=== PATIENT | male | born 1970 | race Caucasian/White ===

== ENCOUNTER → 2017-01-14 | Outpatient (CLI) | payer OTHER ==
[2017-01-14 13:02] LABS: ABSOLUTE BASOPHILS # (AUTO) 0.1 10^3/uL (0.0-0.2); ABSOLUTE EOSINOPHILS # (AUTO) 0.3 10^3/uL (0.0-0.6); ABSOLUTE MONOCYTES (AUTO) 0.6 10^3/uL (0.1-1.4); ABSOLUTE NEUT (AUTO) 4.8 10^3/uL (1.7-8.2); BASOPHILS % (AUTO) 0.7 % (0-2); HEMATOCRIT 39.6 % (37.9-51.0); HEMOGLOBIN 13.8 g/dL (13.5-17.0); HGB HCT DIFFERENCE 1.8; LYMPHOCYTES % (AUTO) 34.2 % (13-45); MEAN CORPUSCULAR HEMOGLOBIN 33.2 pg (27.0-33.4); MEAN CORPUSCULAR VOLUME 95 fl (80-97); MONOCYTES % (AUTO) 6.5 % (3-13); RED BLOOD COUNT 4.17 10^6/uL (4.35-5.55); RED CELL DISTRIBUTION WIDTH 12.9 % (11.5-14.0); SEGMENTED NEUTROPHILS % (AUTO) 55.6 % (42-78); WHITE BLOOD COUNT 8.7 10^3/uL (4.0-10.5)
[2017-01-14 13:30] LABS: ALANINE AMINOTRANSFERASE 39 U/L (21-72); ALBUMIN 4.3 g/dL (3.5-5.0); ALKALINE PHOSPHATASE 74 U/L (38-126); ANION GAP 13 (5-19); ASPARTATE AMINO TRANSFERASE 23 U/L (17-59); BILIRUBIN,DIRECT 0.3 mg/dL (0.0-0.4); BILIRUBIN,TOTAL 0.4 mg/dL (0.2-1.3); BLOOD UREA NITROGEN 13 mg/dL (7-20); CALCIUM 9.5 mg/dL (8.4-10.2); CARBON DIOXIDE 22 mmol/L (22-30); CHLORIDE 101 mmol/L (98-107); GLUCOSE 100 mg/dL (75-110); POTASSIUM 4.6 mmol/L (3.6-5.0); SODIUM 135.6 mmol/L (137-145)
[2017-01-14 13:37] LABS: C-REACTIVE PROTEIN < 5.0 mg/L (<10.0)
[2017-01-14 13:51] LABS: ERYTHROCYTE SEDIMENTATION RATE 10 mm/hr (0-15)
== END ==
LOC: WC 12:19
PROVIDERS: ATTEND Preventive Medicine Undersea and Hyperbaric Medicine
DX: L97.522 Non-pressure chronic ulcer of other part of left foot with fat layer exposed (principal)
CPT/HCPCS: 36415; 80053; 85025; 85652; 86140

== ENCOUNTER → 2017-02-05 | Outpatient (CLI) | payer OTHER | LOC: RAD 13:52 | PROVIDERS: ATTEND Preventive Medicine Undersea and Hyperbaric Medicine | DX: L97.522 Non-pressure chronic ulcer of other part of left foot with fat layer exposed (principal); M86.8X7 Other osteomyelitis, ankle and foot | CPT/HCPCS: 73720; A9576 ==

== ENCOUNTER 2017-03-04 11:15 | Day surgery (SDC) | payer OTHER ==
[~2017-03-04 11:15] MED LIST: CEFAZOLIN 1 GM/D5W RTU 1 GM/50 ML RTUPB IV PRN; TOBRAMYCIN SULFATE INJ 1.2 GM PWDR VIAL MC PRN; VANCOMYCIN HCL INJ 1000 MG VIAL IL PRN; VANCOMYCIN HCL INJ 1000 MG VIAL IV PRN
[2017-03-04] MEDS ORDERED: BACITRACIN INJ 50,000 UNIT VIAL ONE (11:45)
[2017-03-04] MEDS ORDERED: BUPIVACAINE HCL 0.5 % INJ/PF 30 ML SDV ONE (11:45)
[2017-03-04] MEDS ORDERED: LIDOCAINE 2% INJ (20 MG/ML) 20 ML MDV ONE (11:45)
[2017-03-04] MEDS ORDERED: POLYMYXIN B SULFATE INJ 500000 UNIT VIAL ONE (11:45)
[2017-03-04] MEDS ORDERED: NORMAL SALINE INJ/PF 0.9% 10 ML SDV ONE (11:45)
[2017-03-04] MEDS ORDERED: WATER FOR INJECTION,STERILE 10 ML SDV ONE (11:46)
[2017-03-04] MEDS ORDERED: MIDAZOLAM 2 MG/2 ML INJ ONE (11:55)
[2017-03-04] MEDS ORDERED: FENTANYL CITRATE INJ/PF 100 MCG/2 ML AMPUL ONE (11:55)
[2017-03-04] MEDS ORDERED: PROPOFOL INJ 200 MG/20 ML VIAL IV ONE (11:55)
--- NOTE | 2017-03-04 15:34 | RADIOLOGY REPORT (SQ) ---
EXAM DESCRIPTION: FOOT LEFT 2 VIEWS; NO CHG FLUORO COMPLETED DATE/TIME: 03/04/2017 3:14 pm REASON FOR STUDY: LT FOOT 2ND TOE BONE REMOVAL M86.8X7 OTHER OSTEOMYELITIS, ANKLE AND FOOT COMPARISON: None. FLUOROSCOPY TIME: 2 second 2 images saved to PACS. TECHNIQUE: Intra-operative images acquired during surgical procedure to evaluate progress. NUMBER OF IMAGES: 2 LIMITATIONS: None. FINDINGS: Spot fluoroscopic images from amputation of a portion of the phalanges of the 2nd digit th e left foot. Images demonstrate a surgical probe on the 2nd digit following resection of a portion o f the proximal and middle phalanges. Subsequent image demonstrates antibiotic bead placement within the resection cavity. Please see operative report for full details regarding procedure. IMPRESSION: IMAGE(S) OBTAINED DURING PROCEDURE. COMMENT: Quality ID [id number]: Final reports for procedures using fluoroscopy that document radiation exp osure indices, or exposure time and number of fluorographic images (if radiation exposure indices are not available) Please consult full operative report of the attending physician for description of the procedure. TECHNICAL DOCUMENTATION: JOB ID: [id number] [employer]- All Rights Reserved
--- NOTE | 2017-03-05 11:03 | SURGICARE OPERATIVE REPORT E ---
[facility] Operative Report NAME: YOBANY HUANG AGE: 46Y DATE OF SURGERY: ROOM: PREOPERATIVE DIAGNOSIS: Chronic osteomyelitis of the second toe of the left foot. POSTOPERATIVE DIAGNOSIS: Chronic osteomyelitis of the second toe of the left foot. OPERATION: Debridement of bone of the second toe with insertion of antibiotic beads, Osteoset with tobramycin second toe left foot. SURGEON: MUKESH VELA DPM MEAL PACKER: KERRIE GATES DPM INDICATION: On 03/04/2017 the patient was admitted to [facility] with complaint of painful second toe with an open wound, left foot. PROCEDURE: Patient was taken to the operating room where, following induction of intravenous sedation and regional local anesthesia, the patient's left foot and leg were prepped and draped in the usual sterile manner. A tourniquet was placed proximally on the malleoli. Esmarch was placed, and tourniquet was inflated to a level of 250 mmHg for the purpose of hemostasis. Esmarch was removed. Sterile drape was completed, and the following procedure performed. Attention was directed to the patient's left foot and the dorsal aspect of the second toe where there was noted to be an approximately 2-cm open draining ulceration centered over the head of the proximal phalanx and partially over the proximal interphalangeal joint. Incision was started at approximately the second metatarsophalangeal joint and was carried in a linear fashion proximal to and extending distal to the proximal portion of the wound. Incision was then extended on the distal portion of the wound over the distal interphalangeal joint. At that time the wound was debrided. All necrotic edges of the wound were sharply excised. The proximal interphalangeal joint was identified, and the remaining collateral ligaments were sharply excised. The extensor longus extensor tendon had previously ruptured and was located in a lateral proximal position. The phalanx was then debrided utilizing a combination of hand and power equipment until a normal-appearing medullary canal was identified. This was verified under fluoroscopic studies. Approximately 75% of the phalanx needed to be removed at this point. Attention was directed to the base of the middle phalanx, and there was noted to be cartilaginous was intact, but the base of the phalanx was extremely hypertrophied. Utilizing a combination of hand and power equipment the base of the middle phalanx was reduced in bulk. Dissection was carried throughout, removing all necrotic tissue and nonviable tissue. The flexor tendons, longus and brevis, were identified and noted to be in excellent condition and appeared to be free of infection. The remaining portion of the longus extensor tendon was identified and was freed from its soft tissue and angel attachments distally. The extensor roy was released, the remainder distal portion of the tendon was debrided to fresh margins, and appeared to be in a healthy state. It was felt at this time that insertion of antibiotic beads and soft tissue rebalancing of the remaining portion of the phalanx may allow the patient to save the toe and avoid amputation. The Antibiotic bead kit, Osteoset which was premixed prior to the procedure with tobramycin and allowed to harden during the procedure. At this time the wound was flushed with copious amounts of sterile antibiotic solution and inspected for any soft or osseous debris with any debris being removed and any further dissection or debridement carried out at that time. The area was then flushed again with copious amounts of sterile antibiotic solution. The longus extensor tendon and longus flexor tendon were then coapted with simple vicryl suture covering the distal portion of the proximal phalanx stump. At that time antibiotic beads were inserted on adjacent portions of the phalanx, into the end of the proximal phalanx and plantar and dorsal in the wound. The skin incision closure was begun with interrupted horizontal mattress suture. The incision was partially closed, and more antibiotic beads were inserted. This continued until the wound was fully closed primarily. Sterile dressing consisting of Brian silk, 4 x 4s, Roland, Kerlix, and Coflex applied to the patient's left foot. Tourniquet was rapidly deflated. Capillary filling time was instantaneous to the first, third, fourth, and fifth toes, somewhat delayed on the second toe, but capillary refill did return prior to the patient leaving the OR and being sent to the recovery room. Patient tolerated the proceedure very well. DICTATING PHYSICIAN: MUKESH VELA DPM [id number] PHY#: [id number] ID: [id number] JOB#: [id number] ACCT: [id number] cc:MUKESH VELA DPM > [facility]
== END 2017-03-04 15:04 | disposition home or self-care (01) ==
LOC: SC 11:15
PROVIDERS: ATTEND Preventive Medicine Undersea and Hyperbaric Medicine
PROC: 3E01329 Introduction of Other Anti-infective into Subcutaneous Tissue, Percutaneous Approach (ICD-10-PCS; 2017-03-04)
PROC: 0QBR0ZZ Excision of Left Toe Phalanx, Open Approach (ICD-10-PCS; principal; 2017-03-04 12:00)
DX: M86.672 Other chronic osteomyelitis, left ankle and foot (principal); F17.210 Nicotine dependence, cigarettes, uncomplicated
CPT/HCPCS: 87070; 87205; 87101; 87075; 87077; 87186; 88305 ×2; 88311; 73620; 11044; C1713; J2250; J3490 ×5; J0690; J3010; J2704; J3260; 01480

== ENCOUNTER 2017-04-22 09:35 | Day surgery (SDC) | payer OTHER ==
[2017-04-22] MEDS ORDERED: CEFAZOLIN 1 GM/D5W RTU 1 GM/50 ML RTUPB IV ONE (09:49)
[2017-04-22] MEDS ORDERED: ALBUTEROL SULFATE 0.083% NEB 2.5 MG/3 ML AMPUL NEB ONE (10:24)
[2017-04-22] MEDS ORDERED: MIDAZOLAM 2 MG/2 ML INJ ONE (10:46)
[2017-04-22] MEDS ORDERED: FENTANYL CITRATE INJ/PF 100 MCG/2 ML AMPUL ONE (10:47)
[2017-04-22] MEDS ORDERED: ONDANSETRON HCL INJ/PF 4 MG/2 ML SDV ONE (10:47)
[2017-04-22] MEDS ORDERED: PROPOFOL INJ 200 MG/20 ML VIAL IV ONE (10:47)
[2017-04-22] MEDS ORDERED: BACITRACIN INJ 50,000 UNIT VIAL ONE (10:59)
[2017-04-22] MEDS ORDERED: POLYMYXIN B SULFATE INJ 500000 UNIT VIAL ONE (10:59)
[2017-04-22] MEDS ORDERED: NORMAL SALINE INJ/PF 0.9% 10 ML SDV ONE ×2 (10:59→12:05)
[2017-04-22] MEDS ORDERED: LIDOCAINE 2% INJ (20 MG/ML) 20 ML MDV ONE (10:59)
[2017-04-22] MEDS ORDERED: BUPIVACAINE HCL 0.5 % INJ/PF 30 ML SDV ONE (10:59)
[2017-04-22] MEDS ORDERED: ACETAMINOPHEN 100 ML IV ONE (10:59)
--- NOTE | 2017-04-22 13:58 | RADIOLOGY REPORT (SQ) ---
EXAM DESCRIPTION: NO CHG FLUORO; FOOT LEFT 2 VIEWS COMPLETED DATE/TIME: 04/22/2017 1:47 pm REASON FOR STUDY: LT FOOT 2ND TOE AMPUTATION COMPARISON: None. FLUOROSCOPY TIME: 8 seconds Images saved to PACS LIMITATIONS: None. PROCEDURE: Amputation of left 2nd toe. FINDINGS: Intraoperative images document amputation of the 2nd toe. IMPRESSION: Left 2nd toe amputation. COMMENT: PQRS 6045F: Fluoroscopy time of the procedure is documented in the report. TECHNICAL DOCUMENTATION: JOB ID: [id number] [employer]- All Rights Reserved
--- NOTE | 2017-04-22 13:58 | RADIOLOGY REPORT (SQ) ---
EXAM DESCRIPTION: NO CHG FLUORO; FOOT LEFT 2 VIEWS COMPLETED DATE/TIME: 04/22/2017 1:47 pm REASON FOR STUDY: LT FOOT 2ND TOE AMPUTATION COMPARISON: None. FLUOROSCOPY TIME: 8 seconds Images saved to PACS LIMITATIONS: None. PROCEDURE: Amputation of left 2nd toe. FINDINGS: Intraoperative images document amputation of the 2nd toe. IMPRESSION: Left 2nd toe amputation. COMMENT: PQRS 6045F: Fluoroscopy time of the procedure is documented in the report. TECHNICAL DOCUMENTATION: JOB ID: [id number] [employer]- All Rights Reserved
== END 2017-04-22 13:29 | disposition home or self-care (01) ==
LOC: SC 09:35
PROVIDERS: ATTEND Preventive Medicine Undersea and Hyperbaric Medicine
PROC: 0Y6S0Z1 Detachment at Left 2nd Toe, High, Open Approach (ICD-10-PCS; principal; 2017-04-22 10:30)
DX: M86.672 Other chronic osteomyelitis, left ankle and foot (principal); B95.7 Other staphylococcus as the cause of diseases classified elsewhere; M65.9 Synovitis and tenosynovitis, unspecified; F17.210 Nicotine dependence, cigarettes, uncomplicated
CPT/HCPCS: 87070; 87205; 87075; 87077; 87186; 88305 ×2; 88311; 73620; 28825; J2250; J3490 ×4; J0690; J3010; J2405; J2704; J0131; 01480